=== PATIENT | female | born 1995 | race Hispanic/Latino ===

== ENCOUNTER 2017-12-05 14:01 | Emergency (ER) | payer BC ==
[~2017-12-05] VITALS: Ht 160 cm; Wt 54.4 kg
[2017-12-05 15:41] LABS: BILIRUBIN,URINE 3+ (NEGATIVE); KETONES,URINE TRACE (NEGATIVE); LEUKOCYTE ESTERASE ,URINE 2+ (NEGATIVE); URINE UROBILINOGEN 12 mg/dL (0.2 - 1)
[2017-12-05 15:42] LABS: CLARITY,URINE SL CLOUDY (CLEAR); COLOR,URINE ORANGE (YELLOW); NITRITE,URINE POSITIVE (NEGATIVE); PROTEIN,URINE DIPSTICK 1+ (NEGATIVE)
[2017-12-05 15:58] LABS: BACTERIA,URINE MODERATE /HPF; EPITHELIAL CELLS,URINE FEW /LPF; RBC,URINE 21-50 /HPF (0-5)
[2017-12-05 17:19] VITALS: BP 110/75
== END 2017-12-05 17:23 | disposition home or self-care (01) ==
LOC: ER 14:01
DX: N30.91 Cystitis, unspecified with hematuria (principal); L73.9 Follicular disorder, unspecified
CPT/HCPCS: 81001; 81025; 87086; 87186; 99282

== ENCOUNTER 2020-10-30 01:49 | Emergency (ER) | payer BC ==
[~2020-10-30] VITALS: Ht 160 cm; Wt 54.4 kg
== END 2020-10-30 03:00 | disposition home or self-care (01) ==
LOC: ER 01:54
DX: F41.9 Anxiety disorder, unspecified (principal); Z88.8 Allergy status to other drugs, medicaments and biological substances
CPT/HCPCS: 99282

== ENCOUNTER 2021-06-05 03:27 | Emergency (ER) | payer SELFPAY ==
[~2021-06-05] VITALS: Ht 157.5 cm; Wt 54.4 kg
[2021-06-05 04:32] LABS: AMPHETAMINES SCREEN,URINE NEGATIVE (NEGATIVE); BENZODIAZEPINES SCREEN,URINE NEGATIVE (NEGATIVE); PHENCYCLIDINE SCREEN,URINE NEGATIVE (NEGATIVE)
[2021-06-05] MEDS ORDERED: SODIUM CHLORIDE 0.9% 1000ML 1,000 ML IV STA (04:57)
[2021-06-05] MEDS ORDERED: ASPIRIN 81 MG CHEW TAB PO ONE (05:00)
[2021-06-05 05:20] LABS: BASOPHILS % 0.3 % (0.0-1.0); EOSINOPHILS # (AUTO) 0.1 (0.0-0.4); EOSINOPHILS % 0.8 % (0.0-6.0); HEMATOCRIT 36.2 % (34.2-44.1); LYMPHOCYTES # (AUTO) 0.6 (1.0-3.2); LYMPHOCYTES % 8.6 % (18.0-39.1); MEAN CORPUSCULAR HEMOGLOBIN 28.5 pg (28-32); MEAN CORPUSCULAR HGB CONC 33.1 g/dL (31-35); MONOCYTES # (AUTO) 0.3 (0.2-0.8); MONOCYTES % 3.5 % (4.4-11.3); NEUTROPHILS # (AUTO) 6.3 (2.1-6.9); NEUTROPHILS % 86.5 % (38.7-80.0); PLATELET COUNT 265 x10e3/uL (140-360); RED BLOOD COUNT 4.21 x10e6/uL (3.6-5.1); RED CELL DISTRIBUTION WIDTH 12.9 % (11.7-14.4)
[2021-06-05 06:04] LABS: ALBUMIN 4.4 g/dL (3.5-5.0); ALBUMIN/GLOBULIN RATIO 1.3 (0.8-2.0); ANION GAP 16.3 mmol/L (8-16); CALCIUM 9.4 mg/dL (8.4-10.2); CREATININE, SERUM 0.81 mg/dL (0.57-1.11); POTASSIUM 3.3 mmol/L (3.5-5.1)
[2021-06-05] MEDS ORDERED: POTASSIUM CHLORIDE 20 MEQ TAB CR PO STA (07:05)
[2021-06-05 09:43] VITALS: BP 134/71
== END 2021-06-05 07:30 | disposition home or self-care (01) ==
LOC: ER 03:36
DX: R00.2 Palpitations (principal); R42 Dizziness and giddiness; R51.9 Headache, unspecified; R53.1 Weakness
CPT/HCPCS: 36415; 71046; 80053; 80307; 81025; 82550; 82553; 83880; 84484; 85025; 85379; 93005; 99283